=== PATIENT | female | born 1975 | race Two or more races ===

== ENCOUNTER 2022-01-31 00:07 | Emergency (ER) | payer SELFPAY ==
[~2022-01-31] VITALS: Ht 160 cm; Wt 86.2 kg
[2022-01-31] MEDS ORDERED: ONDANSETRON HCL/PF 4 MG/2 ML VIAL IVP ONE (01:30)
[2022-01-31] MEDS ORDERED: HYDROMORPHONE INJ 2 MG/ML DISP.SYRIN IV ONE (01:30)
[2022-01-31] MEDS ORDERED: KETOROLAC TROMETHAMINE INJ 30 MG/ML VIAL IV ONE (01:30)
--- NOTE | 2022-01-31 02:17 | NUR ---
IV CANNULA G18 INSERTED ON RIGHT AC. BLOOD DRAWN AND SENT TO LAB
--- NOTE | 2022-01-31 02:17 | NUR ---
URINE SPECIMEN SENT TO LAB
--- NOTE | 2022-01-31 02:17 | NUR ---
COVID SWAB DONE AND SENT TO LAB
--- NOTE | 2022-01-31 02:20 | NUR ---
PT SIGNED DISCLAIMER THAT SHE IS NOT
[2022-01-31 02:38] LABS: BASOPHILS # (AUTO) 0.1 K/uL (0.0-0.2); EOSINOPHILS % (AUTO) 0.7 % (0.0-6.0); HEMATOCRIT 36 % (33-45); HEMOGLOBIN 11.9 g/dL (11.5-14.8); LYMPHOCYTES # (AUTO) 1.9 K/uL (0.8-4.8); LYMPHOCYTES % (AUTO) 18.4 % (20.0-44.0); MEAN CORPUSCULAR HGB CONC 33 g/dl (31.0-36.0); MEAN CORPUSCULAR VOLUME 83 fL (82-100); MONOCYTES # (AUTO) 0.4 K/uL (0.1-1.30); MONOCYTES % (AUTO) 3.7 % (2.0-12.0); NEUTROPHILS # (AUTO) 7.8 K/uL (1.8-8.9); NEUTROPHILS % (AUTO) 76.2 % (43.0-81.0); PLATELET COUNT (AUTO) 242 K/uL (150-450); RED BLOOD CELL COUNT(AUTO) 4.35 MIL/uL (4.0-5.2); WHITE BLOOD COUNT (AUTO) 10.2 K/uL (4.3-11.0)
--- NOTE | 2022-01-31 02:49 | NUR ---
BROUGHT TO CT DEPT
--- NOTE | 2022-01-31 02:59 | NUR ---
CAME BACK FROM CT SCAN
[2022-01-31 03:10] LABS: CALCIUM, SERUM 9.2 mg/dL (8.5-10.1); CREATININE 0.6 mg/dL (0.6-1.3); POTASSIUM 3.2 mmol/L (3.5-5.1)
[2022-01-31 03:15] LABS: ALBUMIN 3.7 g/dL (3.4-5.0); BILIRUBIN,DIRECT 0.1 mg/dL (0.0-0.2); BILIRUBIN,TOTAL 0.4 mg/dL (0.2-1.0); TOTAL PROTEIN, SERUM 7.9 g/dL (6.4-8.2)
[2022-01-31] MEDS ORDERED: IBUP-1490 PO (04:40)
[2022-01-31] MEDS ORDERED: HYDR-3980 PO (04:40)
[2022-01-31] MEDS ORDERED: POTASSIUM CHLORIDE 20 MEQ TAB.PRT.SR PO ONE (05:00)
--- NOTE | 2022-01-31 05:15 | NUR ---
Patient discharged to home in stable condition. Written and verbal after care instructions given. Patient verbalizes understanding of instruction.
--- NOTE | 2022-01-31 05:15 | NUR ---
IV CANNULA REMOVED
[2022-01-31 05:18] VITALS: BP 199/95
== END 2022-01-31 05:18 | disposition home or self-care (01) ==
LOC: ER 00:09
DX: K80.20 Calculus of gallbladder without cholecystitis without obstruction (principal); R10.31 Right lower quadrant pain; Z20.822 Contact with and (suspected) exposure to COVID-19; R03.0 Elevated blood-pressure reading, without diagnosis of hypertension
CPT/HCPCS: 99285; 74177; 96374; 76705; 96375; 87426; 85025; 80048; 83690; 80076; 36415; 85730; 84702; J1170; J1885; J2405; J7050; Q9967; C9803